=== PATIENT | female | born 1995 | race Two or more races ===

== ENCOUNTER 2020-11-03 01:07 | Inpatient (IN) | payer BC, MEDICAID ==
[2020-11-03 01:41] LABS: APPEARANCE,URINE CLEAR; BILIRUBIN,URINE NEGATIVE (NEGATIVE); COLOR,URINE COLORLESS; GLUCOSE, URINE NEGATIVE (NEGATIVE); KETONES,URINE NEGATIVE (NEGATIVE); LEUKOCYTE ESTERASE,URINE NEGATIVE (NEGATIVE); NITRITE,URINE NEGATIVE (NEGATIVE); PROTEIN,URINE NEGATIVE (NEGATIVE); URINE SPECIFIC GRAVITY 1.003; UROBILINOGEN,URINE NEGATIVE mg/dL (<2.0)
[2020-11-03] MEDS ORDERED: RINGERS SOLUTION,LACTATED 1,000 ML IV PRN (01:42)
[2020-11-03 02:00] LABS: URINE AMPHETAMINES SCREEN NEGATIVE; URINE BARBITURATES SCREEN NEGATIVE; URINE BENZODIAZEPINES SCREEN NEGATIVE; URINE COCAINE SCREEN NEGATIVE; URINE MARIJUANA (THC) SCREEN NEGATIVE; URINE METHADONE SCREEN NEGATIVE; URINE PHENCYCLIDINE SCREEN NEGATIVE
[2020-11-03 02:02] LABS: ABSOLUTE BASOPHILS # (AUTO) 0.1 10^3/uL (0.0-0.2); ABSOLUTE EOSINOPHILS # (AUTO) 0.1 10^3/uL (0.0-0.6); ABSOLUTE LYMPHOCYTES (AUTO) 1.4 10^3/uL (0.5-4.7); ABSOLUTE MONOCYTES (AUTO) 0.7 10^3/uL (0.1-1.4); ABSOLUTE NEUT (AUTO) 6.5 10^3/uL (1.7-8.2); BASOPHILS % (AUTO) 0.6 % (0-2); EOSINOPHILS % (AUTO) 1.6 % (0-6); HEMATOCRIT 32.5 % (36.0-47.0); HEMOGLOBIN 10.4 g/dL (12.0-15.5); LYMPHOCYTES % (AUTO) 16.2 % (13-45); MEAN CORPUSCULAR HGB CONC 32.2 g/dL (32.0-36.0); MEAN CORPUSCULAR VOLUME 78 fl (80-97); MONOCYTES % (AUTO) 8.4 % (3-13); PLATELET COUNT 241 10^3/uL (150-450); RED BLOOD COUNT 4.18 10^6/uL (3.72-5.28); RED CELL DISTRIBUTION WIDTH 16.4 % (11.5-14.0); SEGMENTED NEUTROPHILS % (AUTO) 73.2 % (42-78); TOTAL CELLS COUNTED % (AUTO) 100 %; WHITE BLOOD COUNT 8.9 10^3/uL (4.0-10.5)
[2020-11-03] MEDS ORDERED: OXYTOCIN/0.9 % SODIUM CHLORIDE 30 UNIT/500 ML RTUINJ IV PRN (03:51)
[2020-11-03] MEDS ORDERED: LIDOCAINE 1% INJ-PF (10 MG/ML) 30 ML SDV ONE ×2 (03:53→07:43)
[2020-11-03] MEDS ORDERED: OXYTOCIN 10 UNIT/ML VIAL ONE ×2 (03:53→07:43)
[2020-11-03] MEDS ORDERED: OXYTOCIN/0.9 % SODIUM CHLORIDE 30 UNIT/500 ML RTUINJ ONE ×2 (03:53→07:43)
[2020-11-03] MEDS ORDERED: MISOPROSTOL 0.2 MG TABLET ONE ×2 (03:53→07:43)
--- NOTE | 2020-11-03 07:08 | Admission Physical ---
Datetime Report Generated by CPN: 11/03/2020 07:08 CURRENT ADMISSION Chief Complaint: Uterine Contractions; Suspected Ruptured Membranes Indication for Induction: Not Applicable Admit Impression : Term, Intrauterine ; Active Labor; Ruptured Membranes Admit Plan: Admit to Unit; Initiate Labor Protocol; Initiate Labor Augmentation Protocol ALLERGIES Medication Allergies: No Medication Allergies: No Known Allergies (11/03/2020) Latex: No Latex Allergies OBSTETRICAL HISTORY EDC: 11/14/2020 00:00 : 1 Para: 0 Term: 0 : 0 SAB: 0 IAB: 0 Ectopic: 0 Livin Cesareans: 0 VBACs: 0 Multiple Births: 0 Gestational Diabetes: No Rh Sensitization: No Incompetent Cervix: No DHRUV: No Infertility: No ART Treatment: No Uterine Anomaly: No IUGR: No Hx Previous C/S: No Macrosomia: No Hx Loss/Stillborn: No PIH: No Hx : No Placenta Previa/Abruption: No Depression/PP Depression: No PTL/PROM: No Post Hemorrhage: No Obstetrical History Comments: G1- Current SEE RECORDS Alcohol: No Marijuana : No Cocaine: No Other Illicit Drugs: No Cigarettes: Never Smoker. 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 Heart Disease: No Hosp/Surgery: No Autoimmune Disorder: No Anesthetic Complications: No Kidney Disease: No Abnormal Pap Smear: No Neuro/Epilepsy: No Psychiatric Disorders: Yes Other Medical Diseases: No Hepatitis/Liver Disease: No Significant Family History: No Varicosities/Phlebitis: No Trauma/Violence : No Thyroid Dysfunction: No Medical History Comments: ADHD INFECTIOUS HISTORY Gonorrhea: No Genital Herpes: No Chlamydia: Yes Tuberculosis: No Syphilis: No Hepatitis: No HIV/AIDS Exposure: No Rash or Viral Illness: No HPV: No PHYSICAL EXAM General: Normal HEENT: Normal Neurologic: Normal Thyroid: Normal Heart: Normal Lungs: Normal Breast: Normal Back: Normal Abdomen: Normal Genitourinary Exam: Normal Extremities: Normal DTRs: Normal Pelvic Type: Adequate Vital Signs: Reviewed; Within Normal Limits VAGINAL EXAM Dilatation: 4 Effacement: 70 Station: -1 MEMBRANES Pooling: Positive Membranes: Ruptured Amniotic Fluid Color: Clear FETUS A EGA: 38.3 Monitoring: External US FHR- Baseline: 140 Variability: Moderate 6-25bpm Accelerations: 15X15 Decelerations: None FHR Category: Category I Estimated Weight (gm): 3500 Presentation: Vertex PLANS FOR LABOR AND DELIVERY Labor and Delivery: None Pain Management: None Feeding Preference: Formula Benefit of Breast Feed Discussed: Yes Circumcision: N/A INFORMED CONSENT Signature: with User ID: Yanira
[2020-11-03] MEDS ORDERED: PROMETHAZINE HCL INJ 25 MG/1 ML VIAL IV ONE (07:22)
[2020-11-03] MEDS ORDERED: NALBUPHINE HCL INJ 10 MG/1 ML AMPULE INJ ONE (07:22)
[2020-11-03] MEDS ORDERED: NALBUPHINE HCL INJ 10 MG/1 ML AMPULE ONE (07:27)
[2020-11-03] MEDS ORDERED: PROMETHAZINE HCL INJ 25 MG/1 ML VIAL ONE (07:27)
[2020-11-03] MEDS ORDERED: GLYCERIN/WITCH HAZEL LEAF 1 EACH MED..WIPE TP PRN (14:19)
[2020-11-03] MEDS ORDERED: ACETAMINOPHEN 650 MG SUPP.RECT PR PRN (14:19)
[2020-11-03] MEDS ORDERED: DIPHENHYDRAMINE HCL 25 MG CAPSULE PO PRN (14:19)
[2020-11-03] MEDS ORDERED: PROMETHAZINE HCL INJ 25 MG/1 ML VIAL IV PRN (14:19)
[2020-11-03] MEDS ORDERED: MEASLES,MUMPS&RUBELLA VACC/PF 0.5 ML VIAL SUBCUT PRN (14:19)
[2020-11-03] MEDS ORDERED: PROMETHAZINE HCL 25 MG SUPP.RECT PR PRN (14:19)
[2020-11-03] MEDS ORDERED: DIBUCAINE 1% OINTMENT 28 GM TP PRN (14:19)
[2020-11-03] MEDS ORDERED: ZOLPIDEM TARTRATE 5 MG TABLET PO PRN (14:19)
[2020-11-03] MEDS ORDERED: DIPH/PERTUSS(ACELL)/TETANUS VAC/PF 0.5 ML SYR (>=10YO) IM PRN (14:19)
[2020-11-03] MEDS ORDERED: ACETAMINOPHEN WITH CODEINE #3 TABLET PO PRN ×2 (14:19)
[2020-11-03] MEDS ORDERED: PSEUDOEPHEDRINE HCL 30 MG TABLET PO PRN (14:19)
[2020-11-03] MEDS ORDERED: BENZOCAINE/MENTHOL AEROSOL SPRAY 56 ML TOP PRN (14:19)
[2020-11-03] MEDS ORDERED: PROMETHAZINE HCL 25 MG TABLET PO PRN (14:19)
[2020-11-03] MEDS ORDERED: MAGNESIUM HYDROXIDE SUSP 30 ML UDCUP PO PRN (14:19)
[2020-11-03] MEDS ORDERED: NA PHOS,M-B/NA PHOS,DI-BA (ADULT) 133 ML ENEMA PR PRN (14:19)
--- NOTE | 2020-11-03 15:12 | Birth Certificate Data ---
Cert Data Datetime Report Generated by CPN: 11/03/2020 15:12 CERTIFICATE DATA Delivery Provider: Obed Miranda MD (11/03/2020 01:09:Karuna Turcios RN) 47a. Care: Yes (11/03/2020 01:09:Nicole Alcazar RN) 47b. Date of First Visit: 05/02/2020 00:00 (11/03/2020 01:09:Nicole Alcazar RN) 48a. Number of Prev Live Births: 0 (11/03/2020 01:09:Nicole Alcazar RN) 48b. Now Livin (11/03/2020 01:09:Nicole Alcazar RN) 48c. Live Births Now : 0 (11/03/2020 01:09: system process) 48e. Losses: 0 (11/03/2020 01:09:Nicole Alcazar RN) RISK FACTORS IN THIS 49a. Diabetes: No (11/03/2020 01:09:Nicole Alcazar RN) 49b. Hypertension: No (11/03/2020 01:09:Nicole Alcazar RN) 49c. Previous Births: 0 (11/03/2020 01:09:Nicole Alcazar RN) 49d. Stillborns: No (11/03/2020 01:09:Nicole Alcazar RN) 49d. IUGR: No (11/03/2020 01:09:Nicole Alcazar RN) 49e. Infertility Treatment: No (11/03/2020 01:09:Nicole Alcazar RN) 49f. Previous Cesareans: 0 (11/03/2020 01:09:Nicole Alcazar RN) Mother's Height 50b. Height Inches: 67 (11/03/2020 06:58:QS system process) Mother's Weight 51a. Pre- Weight (lbs): 194 (11/03/2020 01:09:Nicole Alcazar RN) 51b. Weight at Delivery (lbs): 227 (11/03/2020 01:16:QS system process) 52. Dt Last Normal Menses Began: 02/08/2020 00:00 (11/03/2020 01:09:Nicole Alcazar RN) Infections Present/Treated 53a. Gonorrhea: No (11/03/2020 01:09:Nicole Alcazar RN) Results this Hospital Visit : Negative (11/03/2020 01:09:Nicole Alcazar RN) 53b. Syphilis: No (11/03/2020 01:09:Nicole Alcazar RN) 53c. Chlamydia: Yes (11/03/2020 01:09:Nicole Alcazar RN) Results this Hospital Visit: Negative (11/03/2020 01:09:Nicole Alcazar RN) 53d. Hepatitis B: No (11/03/2020 01:09:Nicole Alcazar RN) Results this Hospital Visit: Negative (11/03/2020 01:09:Nicole Alcazar RN) 53e. Hepatitis C: Negative (11/03/2020 01:09:Nicole Alcazar RN) 53h. Mother Tested for HBsAG: Yes (11/03/2020 01:09:Nicole Alcazar RN) 53i. Date Tested: 05/02/2020 00:00 (11/03/2020 01:09:Nicole Alcazar RN) 53j. Test Result: Negative (11/03/2020 01:09:Nicole Aclazar RN) Cigarette Smoking Cigarette Smoking: Never Smoker. [id number] (11/03/2020 01:09:Nicole Alcazar RN) 55a. 3 Months Before Preg - Ci (11/03/2020 01:09:Nicole Alcazar RN) 55b. 1st Trimester of Preg- Ci (11/03/2020 01:09:Nicole Alcazar RN) 55c. 2nd Trimester of Preg- Ci (11/03/2020 01:09:Nicole Alcazar RN) 55d. 3rd Trimester of Preg- Ci (11/03/2020 01:09:Nicole Alcazar RN) Onset of Labor 56a. PROM >12 Hrs: 12.32 (11/03/2020 02:24:QS system process) 56b. Precipitous Labor <3 Hrs: 12 (11/03/2020 01:09:QS system process) 56c. Prolonged Labor > 20 Hrs: 12 (11/03/2020 01:09:QS system process) 57a. Induction of Labor: Augmentation (11/03/2020 01:09:Karuna Turcios RN) 57c. Non-Vertex Presentation A: Vertex (11/03/2020 01:09:Karuna Turcios RN) 57d. Steroids - Lung Mat: None (11/03/2020 01:09:Karuna Turcios RN) 57d. Steroids - Lung Mat: Not Applicable (11/03/2020 01:09:Karuna Turcios RN) 57f. Mat [place] or Temp >100.4: 98.6 (11/03/2020 01:09:Karuna Turcios RN) 57g. Moderate/Heavy Meconium: Clear (11/03/2020 02:24:Nicole Alcazar RN) 57h. Intolerance of Labor: N/A (11/03/2020 01:09:Karuna Turcios RN) : N/A (11/03/2020 01:09:Karuna Turcios RN) 57i. Epidural/Spinal Anesthesia: None (11/03/2020 01:09:Karuna Turcios RN) Method of Delivery 58a. Forceps - Unsuccessful A: N/A (11/03/2020 01:09:Karuna Turcios RN) 58b. Vacuum - Unsuccessful A: N/A (11/03/2020 01:09:Karuna Turcios RN) 58c. Presentation at 58c. Presentation at - A : Vertex (11/03/2020 01:09:Karuna Turcios RN) 58c. Presentation at - A : N/A (11/03/2020 01:09:Karuna Turcios RN) 58c. Presentation at - A : Cephalic (11/03/2020 07:14:Karuna Turcios RN) Final Route and Method of Del 58d. Baby A Route/Delivery: Vaginal (11/03/2020 12:49:Karuna Turcios RN) 58e. Trial of Labor Attempted: No (11/03/2020 01:09:Karuna Turcios RN) 58e. Trial of Labor Attempted A: N/A (11/03/2020 01:09:Karuna Turcios RN) 58e. Trial of Labor Attempted B: N/A (11/03/2020 01:09:Karuna Turcios RN) Maternal Morbidity 59b. 3rd or 4th Degree Lacs: Perineal (11/03/2020 01:09:Karuna Turcios RN) Birthweight Baby A: 3245 (11/03/2020 01:09:Karuna Turcios RN) 60a. Pounds : 7 (11/03/2020 01:09:QS system process) 60b. Ounces: 2 (11/03/2020 01:09:QS system process) 61. GA at Delivery Baby A: 38.3 (11/03/2020 01:09:Karuna Turcios RN) : Early Term- 37- 38.6 Weeks (11/03/2020 01:09:QS system process) 62a. 5 Minute Baby A: 9 (11/03/2020 01:09:QS system process)
--- NOTE | 2020-11-03 15:12 | Delivery Summary ---
Del Sum A-C Datetime Report Generated by CPN: 11/03/2020 15:12 DELIVERY PERSONNEL DELIVERY PERSONNEL: [id number] Delivery Doctor:: Obed Miranda MD Labor and Delivery Nurse:: Karuna Turcios RNmedication administration professional Nurse:: Jenny Franco RN Nursery Nurse:: Kailey Alaniz RN MATERNAL INFORMATION Delivery Anesthesia: None Medications After Delivery: Pitocin 30 Units in 500ml NS/D5W Estimated Blood Loss (ml): 250 Delivery QBL: 250 Maternal Complications: None LABOR SUMMARY EDC: 11/14/2020 00:00 No. Babies in Womb: 1 Attempted: No Labor Anesthesia: None LABOR INFORMATION Reason for Induction: Premature Rupture of Membranes Onset of Labor: 11/03/2020 00:30 Complete Dilatation: 11/03/2020 12:15 Oxytocin: Augmentation Group B Beta Strep: Negative Antibiotics # of Doses: 0 Name of Antibiotic Given: n/a Steroids Given: None Reason Steroids Not Administered: Not Applicable MEMBRANES Membranes Rupture Method: Spontaneous Rupture of Membranes: 11/03/2020 00:30 Length of Rupture (hr): 12.32 Amniotic Fluid Color: Clear Amniotic Fluid Amount: Small Amniotic Fluid Odor: Normal STAGES OF LABOR Stage 1 hr: 11 Stage 1 min: 45 Stage 2 hr: 0 Stage 2 min: 34 Stage 3 hr: 0 Stage 3 min: 2 Total Time in Labor hr: 12 Total Time in Labor min: 21 VAGINAL DELIVERY Episiotomy: Median Laceration #1: Perineal Laceration Extension #1: Second Degree Laceration Repair: Yes Laceration Repair Note: Dr. Miranda reported he cut a 2nd degree episiotomy which he repaired without difficulty under local Sponge Count Correct: Yes Sharps Count Correct: Yes CSECTION DELIVERY Primary Indication: N/A Secondary Indication: N/A CSection Incidence: N/A Labor: N/A Elective: N/A CSection Incision: N/A BABY A INFORMATION Infant Delivery Date/Time: 11/03/2020 12:49 Method of Delivery: Vaginal Nurse Controlled Delivery: No Born in Route : No : N/A Forceps: N/A Vacuum Extraction: N/A Shoulder Dystocia : No PRESENTATION/POSITION BABY A Presentation: Cephalic Cephalic Presentation: Vertex Vertex Position: Right Occipital Anterior Breech Presentation: N/A PLACENTA INFORMATION BABY A Placenta Delivery Time : 11/03/2020 12:51 Placenta Method of Delivery: Spontaneous Placenta Status: Delivered SCORES BABY A Heart Rate 1 min: >100 bpm Resp Effort 1 min: Good Cry Reflex Irritability 1 min: Cough or Sneeze or Pulls Away Muscle Tone 1 min: Active Motion Color 1 min: Body [place], Extremities Blue Resuscitation Effort 1 min: Tactile Stimulation SCORE 1 MIN: 9 Heart Rate 5 min: >100 bpm Resp Effort 5 min: Good Cry Reflex Irritability 5 min: Cough or Sneeze or Pulls Away Muscle Tone 5 min: Active Motion Color 5 min: Body [place], Extremities Blue Resuscitation Effort 5 min: N/A SCORE 5 MIN: 9 INFANT INFORMATION BABY A Gestational Age at Delivery: 38.3 Gestational Status: Early Term- 37- 38.6 Weeks Infant Outcome : Liveborn Condition : Stable Sex: Female IDENTIFICATION BABY A Infant Verification Date/Time: 11/03/2020 13:48 ID Band Number: [id number] Mother's Name Verified: Yes RN Verifying : B Joan RN/C Tam RN WEIGHT/LENGTH BABY A Birthweight (gm): 3245 Weight (lb): 7 Infant Weight (oz): 2 Infant Length (in): 19.75 Length (cm): 50.17 CORD INFORMATION BABY A No. Cord Vessels: 3 Nuchal Cord : N/A Cord Blood Taken: Yes-For Storage (Mom's Blood type +) Infant Suction: None ASSESSMENT BABY A Skin to Skin: Yes BABY B INFORMATION : N/A SIGNATURES Signature: with User ID: Yanira
[2020-11-03] MEDS ORDERED: BENZOCAINE/MENTHOL AEROSOL SPRAY 56 ML ONE (15:22)
[2020-11-03] MEDS: DOCUSATE SODIUM 100 MG CAPSULE PO SCH (17:36)
[2020-11-03] MEDS: FERROUS SULFATE 325 MG TABLET PO SCH (17:36)
[2020-11-03] MEDS: FAMOTIDINE 20 MG TABLET PO SCH (21:32)
[2020-11-03] MEDS: IBUPROFEN 800 MG TABLET PO SCH (21:32)
[2020-11-04] MEDS: IBUPROFEN 800 MG TABLET PO SCH ×3 (05:23→21:38)
[2020-11-04 06:52] LABS: HEMATOCRIT 30.4 % (36.0-47.0); HEMOGLOBIN 9.7 g/dL (12.0-15.5); MEAN CORPUSCULAR HEMOGLOBIN 25.2 pg (27.0-33.4); MEAN CORPUSCULAR HGB CONC 31.9 g/dL (32.0-36.0); MEAN CORPUSCULAR VOLUME 79 fl (80-97); PLATELET COUNT 226 10^3/uL (150-450); RED BLOOD COUNT 3.85 10^6/uL (3.72-5.28); RED CELL DISTRIBUTION WIDTH 16.5 % (11.5-14.0); WHITE BLOOD COUNT 10.1 10^3/uL (4.0-10.5)
--- NOTE | 2020-11-04 09:44 | PDOC PROGRESS REPORT ---
Subjective-OB Progress Note for:: 11/04/20 - PP day #1, doing well, no complaints, UOB, voiding, B+, Rubella immune, breast and bottle feeding Physical Exam (OB) Vital Signs: Temp Pulse Resp BP Pulse Ox 97.9 F 96 18 123/60 100 11/03/20 20:25 11/03/20 20:13 11/03/20 20:13 11/03/20 20:13 11/03/20 20:13 Intake & Output 11/03/20 11/04/20 11/05/20 06:59 06:59 06:59 Output Total 240 Balance -240 Weight 103 kg - General General Appearance: Appears well, Alert In distress: None - PIH/Pre-Eclampsia DTR's: 1 + Clonus: Negative Headache: Absent Epigastric Pain: No Visual Changes: No - Maternal Morbidity 59. Maternal Morbidity (serious complications experinced by the mother associated with labor and delivery: None of the above - Lochia Lochia Amount: Small 10-25 ml Lochia Color: Rubra/Red - Abdomen Description: Tender, Soft Hernia Present: No Fundal Description: Firm, Midline Fundal Height: u/u - u/2 - Respiratory Respiratory Status: No respiratory distress - Genitourinary Genitourinary Note: voiding - Extremities Upper extremity: Normal inspection Lower extremities: Normal inspection - Neurological Cognition: Normal Orientation: AAOx4 - Psychological Associated symptoms: Normal affect, Normal mood Objective-Diagnostic Laboratory: 11/04/20 06:25 11/04/20 06:25 WBC 10.1 RBC 3.85 Hgb 9.7 L Hct 30.4 L MCV 79 L MCH 25.2 L MCHC 31.9 L RDW 16.5 H Plt Count 226 Assessment and Plan(PN) - Assessment and Plan (1) Acute blood loss anemia Is this a current diagnosis for this admission?: Yes Plan:: Routine PP orders, ambulation encouraged - Time Spent with Patient Time with patient: Less than 15 minutes Medications reviewed and adjusted accordingly: Yes - Disposition Anticipated Discharge Disposition: Home, Self Care Anticipated Discharge Timeframe: within 24 hours
[2020-11-04] MEDS: FERROUS SULFATE 325 MG TABLET PO SCH ×2 (10:22→17:17)
[2020-11-04] MEDS: DOCUSATE SODIUM 100 MG CAPSULE PO SCH ×2 (10:22→17:17)
[2020-11-04] MEDS: FAMOTIDINE 20 MG TABLET PO SCH ×2 (10:22→21:38)
[2020-11-04] MEDS: PRENATAL VITAMIN W DHA CAPSULE PO SCH (10:23)
[2020-11-04] MEDS: SENNOSIDES/DOCUSATE 8.6-50 MG 1 EACH TABLET PO SCH (10:23)
[2020-11-05] MEDS: IBUPROFEN 800 MG TABLET PO SCH (05:14)
[2020-11-05 07:47] VITALS: BP 111/56
[2020-11-05] MEDS: SENNOSIDES/DOCUSATE 8.6-50 MG 1 EACH TABLET PO SCH (10:12)
[2020-11-05] MEDS: FAMOTIDINE 20 MG TABLET PO SCH (10:12)
[2020-11-05] MEDS: FERROUS SULFATE 325 MG TABLET PO SCH (10:12)
[2020-11-05] MEDS: DOCUSATE SODIUM 100 MG CAPSULE PO SCH (10:12)
[2020-11-05] MEDS: PRENATAL VITAMIN W DHA CAPSULE PO SCH (10:12)
--- NOTE | 2020-11-05 10:16 | PDOC DISCHARGE SUMMARY ---
Impression - Admit/DC Date/PCP Admission Date/Primary Care Provider: 11/03/20 01:51 SELMA MCGOWAN MD Discharge Date: 11/05/20 - Discharge Diagnosis (1) History of episiotomy Is this a current diagnosis for this admission?: Yes (2) Normal vaginal delivery Is this a current diagnosis for this admission?: Yes (3) Acute blood loss anemia Is this a current diagnosis for this admission?: Yes - Additional Information Discharge Diet: Regular Discharge Activity: Balance Activity w/Rest, Pelvic Rest Referrals: SELMA MCGOWAN MD [Primary Care Provider] - Prescriptions: Ibuprofen [Motrin 800 mg Tablet] 800 mg PO Q8HP PRN #90 tablet PRN Reason: Home Medications: Pnv No.95/Ferrous Fum/Folic AC [ Caplet] 1 each PO DAILY 11/03/20 Ibuprofen [Motrin 800 mg Tablet] 800 mg PO Q8HP PRN #90 tablet 11/05/20 Hospital Course 59. Maternal Morbidity (serious complications experinced by the mother associated with labor and delivery: None of the above Results Laboratory Results: WBC 10.1 10^3/uL (4.0-10.5) 11/04/20 06:25 RBC 3.85 10^6/uL (3.72-5.28) 11/04/20 06:25 Hgb 9.7 g/dL (12.0-15.5) L 11/04/20 06:25 Hct 30.4 % (36.0-47.0) L 11/04/20 06:25 MCV 79 fl (80-97) L 11/04/20 06:25 MCH 25.2 pg (27.0-33.4) L 11/04/20 06:25 MCHC 31.9 g/dL (32.0-36.0) L 11/04/20 06:25 RDW 16.5 % (11.5-14.0) H 11/04/20 06:25 Plt Count 226 10^3/uL (150-450) 11/04/20 06:25 Lymph % (Auto) 16.2 % (13-45) 11/03/20 01:50 Chaves % (Auto) 8.4 % (3-13) 11/03/20 01:50 Eos % (Auto) 1.6 % (0-6) 11/03/20 01:50 Baso % (Auto) 0.6 % (0-2) 11/03/20 01:50 Absolute Neuts (auto) 6.5 10^3/uL (1.7-8.2) 11/03/20 01:50 Absolute Lymphs (auto) 1.4 10^3/uL (0.5-4.7) 11/03/20 01:50 Absolute Monos (auto) 0.7 10^3/uL (0.1-1.4) 11/03/20 01:50 Absolute Eos (auto) 0.1 10^3/uL (0.0-0.6) 11/03/20 01:50 Absolute Basos (auto) 0.1 10^3/uL (0.0-0.2) 11/03/20 01:50 Seg Neutrophils % 73.2 % (42-78) 11/03/20 01:50 Urine Color COLORLESS 11/03/20 01:10 Urine Appearance CLEAR 11/03/20 01:10 Urine pH 7.0 (5.0-9.0) 11/03/20 01:10 Ur Specific Benedict 1.003 11/03/20 01:10 Urine Protein NEGATIVE mg/dL (NEGATIVE) 11/03/20 01:10 Urine Glucose (UA) NEGATIVE mg/dL (NEGATIVE) 11/03/20 01:10 Urine Ketones NEGATIVE mg/dL (NEGATIVE) 11/03/20 01:10 Urine Blood MODERATE (NEGATIVE) H 11/03/20 01:10 Urine Nitrite NEGATIVE (NEGATIVE) 11/03/20 01:10 Urine Bilirubin NEGATIVE (NEGATIVE) 11/03/20 01:10 Urine Urobilinogen NEGATIVE mg/dL (<2.0) 11/03/20 01:10 Ur Leukocyte Esterase NEGATIVE (NEGATIVE) 11/03/20 01:10 Urine Ascorbic Acid NEGATIVE (NEGATIVE) 11/03/20 01:10 Membranes Rupture POSITIVE (NEGATIVE) H 11/03/20 01:15 Urine Opiates Screen NEGATIVE 11/03/20 01:10 Urine Methadone Screen NEGATIVE 11/03/20 01:10 Ur Barbiturates Screen NEGATIVE 11/03/20 01:10 Ur Phencyclidine Scrn NEGATIVE 11/03/20 01:10 Ur Amphetamines Screen NEGATIVE 11/03/20 01:10 U Benzodiazepines Scrn NEGATIVE 11/03/20 01:10 Urine Cocaine Screen NEGATIVE 11/03/20 01:10 U Marijuana (THC) Screen NEGATIVE 11/03/20 01:10 RPR NONREACTIVE (NONREACTIVE) 11/03/20 01:50 Blood Type B POSITIVE 11/03/20 01:50 Antibody Screen NEGATIVE 11/03/20 01:50 Plan Plan of Treatment: follow up in [address] [facility] [place] for post check
== END 2020-11-05 12:45 | disposition home or self-care (01) | DRG 806 ==
LOC: LC 01:07 → LR 01:51 → 2S 16:12
PROVIDERS: ADMIT Obstetrics & Gynecology; ATTEND Obstetrics & Gynecology
PROC: 10E0XZZ Delivery of Products of Conception, External Approach (ICD-10-PCS; principal; 2020-11-03)
PROC: 0KQM0ZZ Repair Perineum Muscle, Open Approach (ICD-10-PCS; 2020-11-03)
DX: O70.1 Second degree perineal laceration during delivery (principal); D62 Acute posthemorrhagic anemia; Z37.0 Single live birth; O90.81 Anemia of the puerperium; Z20.828 Contact with and (suspected) exposure to other viral communicable diseases; Z28.21 Immunization not carried out because of patient refusal; Z3A.38 38 weeks gestation of pregnancy
CPT/HCPCS: 36415; 80307; 81005; 84112; 85025; 85027; 86592; 86850; 86900; 86901; J2300; J2550; J2590; J3490